=== PATIENT | female | born 1995 | race American Indian/Alaskan Native ===

== ENCOUNTER 2019-12-03 00:01 | Emergency (ER) | payer SELFPAY ==
[2019-12-03 00:22] VITALS: BP 101/67
[2019-12-03 03:20] LABS: Basophils % (Auto) 0.3 % (0.0-1.8); Eosinophils % (Auto) 0.4 % (0.0-4.3); Hematocrit 32.6 % (30.3-42.9); Hemoglobin 10.9 gm/dl (10.1-14.3); Lymphocytes # (Auto) 1.9 K/mm3 (1.2-5.4); Lymphocytes % (Auto) 14.4 % (13.4-35.0); Mean Corpuscular HGB Conc 33 % (30-34); Mean Corpuscular Volume 94 fl (79-97); Monocytes # (Auto) 1.1 K/mm3 (0.0-0.8); Monocytes % (Auto) 8.5 % (0.0-7.3); Platelet Count 322 K/mm3 (140-440); Red Blood Count 3.46 M/mm3 (3.65-5.03); Red Cell Distribution Width 12.8 % (13.2-15.2)
[2019-12-03 03:37] LABS: Alanine Aminotransferase 9 units/L (7-56); Albumin 3.7 g/dL (3.9-5); BUN/Creatinine Ratio 6; Blood Urea Nitrogen 5 mg/dL (7-17); Calcium 9.1 mg/dL (8.4-10.2); Hemolysis Index 1
--- NOTE | 2019-12-03 03:48 | Ultrasound Report ---
ULTRASOUND PELVIS INDICATION: pelvic pain. TECHNIQUE: Transabdominal. Duplex Color Doppler used: Yes. COMPARISON: None available FINDINGS: Uterus: Present. Size: 5.7 x 2.9 x 4.4 cm. Endometrial complex: Normal measuring 0.6 cm. Mass lesions: None. Additional findings: None. Right Ovary: Size: 4.0 x 2.6 x 2.7 cm Blood flow: Normal. Cyst or mass: None. Left Ovary: Size: 3.2 x 2.3 x 2.6 cm Blood flow: Normal. Cyst or mass: None. Urinary Bladder: Normal. Free Fluid: None. Additional Findings: None. IMPRESSION: 1. No acute sonographic abnormality of the pelvis. Signer Name: Zeke Lazo MD Signed: 12/03/2019 3:44 AM Workstation Name: [id number]
[2019-12-03 03:57] LABS: Bacteria,Urine 1+ /HPF (Negative); Bilirubin,Urine NEG (Negative); Blood,Urine NEG (Negative); Color,Urine Yellow (Yellow); Mucus,Urine FEW /HPF; Protein,Urine <15 mg/dL mg/dL (Negative)
--- NOTE | 2019-12-03 04:43 | Emergency Department Report ---
ED Female HPI - General Chief complaint: Abdominal Pain Stated complaint: LOWER ABD PAIN Source: patient Mode of arrival: Ambulatory Limitations: No Limitations - History of Present Illness Initial comments: Patient is a nulliparous 24-year-old -[place] female with no past medical history presents to the ED with complaint of acute onset persistent intermittent severe suprapubic pain for the last 1 week, worse in the last 2 days. Patient denies dizziness, fever, chills, nausea, vomiting, chest pain, shortness of breath, dysuria, urinary frequency and urgency, vaginal discharge, dyspareunia, vaginal bleeding or low back pain. Patient states that she has been taking [id number] medication with no relief. MD Complaint: pelvic pain -: Sudden, week(s) (1) Location: suprapubic Radiation: non-radiating Severity: severe Severity scale (0 -10): 7 Quality: cramping, sharp Consistency: intermittent Improves with: none Worsens with: none Are you Now?: No Last Menstrual Period: 11/27/19 EDC: 09/02/20 Associated Symptoms: denies other symptoms, abdominal pain, loss of appetite, hematuria. denies: vaginal discharge, vaginal bleeding, nausea/vomiting, fever/chills, headaches, dysuria, rash, seizure, shortness of breath, syncope, weakness, other - Related Data Sexually active: Yes : 0 Para: 0 A: 0 Previous Rx's Medication Instructions Recorded Last Taken Type Ibuprofen [Motrin] 600 mg PO Q8H PRN #24 tablet 12/03/19 Unknown Rx Ondansetron [Zofran Odt] 4 mg PO Q6HR PRN #12 tab.rapdis 12/03/19 Unknown Rx cephALEXin [Keflex] 500 mg PO Q8HR #30 cap 12/03/19 Unknown Rx ED Review of Systems ROS: Stated complaint: LOWER ABD PAIN Other details as noted in HPI Constitutional: denies: chills, fever Eyes: denies: eye pain, eye discharge, vision change ENT: denies: ear pain, throat pain Respiratory: denies: cough, shortness of breath, wheezing Cardiovascular: denies: chest pain, palpitations Endocrine: no symptoms reported Gastrointestinal: abdominal pain (Diffuse lower abdominal pain). denies: nausea, diarrhea Genitourinary: denies: urgency, dysuria, frequency, hematuria, discharge, dyspareunia Musculoskeletal: denies: back pain, joint swelling, arthralgia Skin: denies: rash, lesions Neurological: denies: headache, weakness, paresthesias Psychiatric: denies: anxiety, depression Hematological/Lymphatic: denies: easy bleeding, easy bruising ED Past Medical Hx - Past Medical History Previous Medical History?: No - Surgical History Past Surgical History?: No - Social History Smoking Status: Never Smoker Substance Use Type: None - Medications Home Medications: Home Medications Medication Instructions Recorded Confirmed Last Taken Type Ibuprofen [Motrin] 600 mg PO Q8H PRN #24 tablet 12/03/19 Unknown Rx Ondansetron [Zofran Odt] 4 mg PO Q6HR PRN #12 tab.rapdis 12/03/19 Unknown Rx cephALEXin [Keflex] 500 mg PO Q8HR #30 cap 12/03/19 Unknown Rx ED Physical Exam - General Limitations: No Limitations General appearance: alert, in no apparent distress - Head Head exam: Present: atraumatic, normocephalic, normal inspection - Eye Eye exam: Present: normal appearance, PERRL, EOMI Pupils: Present: normal accommodation - ENT ENT exam: Present: normal exam, normal orophraynx, mucous membranes moist, TM's normal bilaterally, normal external ear exam - Neck Neck exam: Present: normal inspection, full ROM - Respiratory Respiratory exam: Present: normal lung sounds bilaterally. Absent: respiratory distress, wheezes, rhonchi, chest wall tenderness, accessory muscle use, decreased breath sounds - Cardiovascular Cardiovascular Exam: Present: normal rhythm, tachycardia, normal heart sounds. Absent: systolic murmur, diastolic murmur, rubs, gallop - GI/Abdominal GI/Abdominal exam: Present: soft, tenderness (Palpable mild suprapubic tenderne ss), normal bowel sounds. Absent: guarding, rebound, hyperactive bowel sounds - Bi-manual exam: Present: other (Pelvic exam deferred, patient declined) - Extremities Exam Extremities exam: Present: normal inspection, full ROM, normal capillary refill - Back Exam Back exam: Present: normal inspection, full ROM. Absent: tenderness, CVA tenderness (R), CVA tenderness (L), muscle spasm, paraspinal tenderness, vertebral tenderness - Neurological Exam Neurological exam: Present: alert, oriented X3, CN II-XII intact, normal gait, reflexes normal - Psychiatric Psychiatric exam: Present: normal affect, normal mood - Skin Skin exam: Present: warm, dry, intact, normal color. Absent: rash ED Course Vital Signs 12/03/19 00:05 Temperature 100.2 F H Pulse Rate 112 H Respiratory 12 Rate Blood Pressure 101/67 O2 Sat by Pulse 98 Oximetry ED Medical Decision Making - Lab Data Result diagrams: 12/03/19 02:43 12/03/19 02:43 - Radiology Data Radiology results: report reviewed, image reviewed Findings [facility] [address] [place] [address] Ultrasound Report Signed Patient: DELMY WEBSTER MR#: [id number] : 1995 Acct:[id number] Age/Sex: 24 / F ADM Date: 12/03/19 Loc: ED Attending Dr: Ordering Physician: MATIAS PEDRO Date of Service: 12/03/19 Procedure(s): US pelvic complete Accession Number(s): [id number] cc: MATIAS PEDRO ULTRASOUND PELVIS INDICATION: pelvic pain. TECHNIQUE: Transabdominal. Duplex Color Doppler used: Yes. COMPARISON: None available FINDINGS: Uterus: Present. Size: 5.7 x 2.9 x 4.4 cm. Endometrial complex: Normal measuring 0.6 cm. Mass lesions: None. Additional findings: None. Right Ovary: Size: 4.0 x 2.6 x 2.7 cm Blood flow: Normal. Cyst or mass: None. Left Ovary: Size: 3.2 x 2.3 x 2.6 cm Blood flow: Normal. Cyst or mass: None. Urinary Bladder: Normal. Free Fluid: None. Additional Findings: None. IMPRESSION: 1. No acute sonographic abnormality of the pelvis. Signer Name: Zeke Lazo MD Signed: 12/03/2019 3:44 AM Workstation Name: [id number] Transcribed By: [place] Dictated By: Zeke Lazo MD Electronically Authenticated By: Zeke Lazo MD Signed Date/Time: 12/03/19 0344 DD/ 0333 TD/TT: - Medical Decision Making This is a 24-year-old nulliparous female who presented to the ED with complaint of acute onset persistent pelvic pain for the last 1 week intermittently. In the ED, patient is alert and oriented x3 and is not in distress but tachycardic and slightly febrile. Lab test results were reviewed and showed acute leukocytosis of 12,900 and significant urinary tract infection in urinalysis. The rest of the lab test results are nonactionable. Pelvic ultrasound shows no acute sonographic abnormality of the pelvis. Patient was treated for pain in the ED and also treated with antibiotics for UTI. Patient symptoms are likely due to acute urinary tract infection although other differential diagnoses were also considered such as ectopic , ovarian cysts, PID, dysmenorrhea or constipation. On reevaluation, patient's pain is well controlled with medications, tachycardia resolved as well as low-grade fever. Patient was discharged home on medications and advised to follow-up with her [facility] physician or primary care physician in 5 to 7 days for reevaluation or return to the ED immediately if symptoms get worse. - Differential Diagnosis UTI; Ectopic ; Ovarian cysts; Dysmenorrhea; PID Critical care attestation.: If time is entered above; I have spent that time in minutes in the direct care of this critically ill patient, excluding procedure time. ED Disposition Clinical Impression: Acute pelvic pain, female, Acute urinary tract infection, Fever and chills Disposition: - TO HOME OR SELFCARE Is pt being admited?: No Does the pt Need Aspirin: No Condition: Stable Instructions: Urinary Tract Infection in Women (ED), Fever in Adults (ED), Abdominal Pain (ED) Additional Instructions: Take medications with food, drink plenty of fluids and follow-up with your [place] care physician in 7 to 10 days for reevaluation. Return to the ED immediately if symptoms get worse. Prescriptions: cephALEXin [Keflex] 500 mg PO Q8HR #30 cap Ibuprofen [Motrin] 600 mg PO Q8H PRN #24 tablet PRN Reason: Pain Ondansetron [Zofran Odt] 4 mg PO Q6HR PRN #12 tab.rapdis PRN Reason: Nausea Referrals: JOSE CARTER MD [Staff Physician] - 7-10 days Time of Disposition: 05:01 Print Language: LITHUANIAN
[2019-12-03] MEDS: KETOROLAC 30 MG/1 ML INJ IV ONE (05:29)
[2019-12-03] MEDS: cephALEXin 500 MG CAP PO ONE (05:30)
[2019-12-03] MEDS: ACETAMINOPHEN 325 MG TAB PO ONE (05:30)
== END 2019-12-03 05:47 | disposition home or self-care (01) ==
LOC: ED 00:01
DX: N39.0 Urinary tract infection, site not specified (principal); Z79.1 Long term (current) use of non-steroidal anti-inflammatories (NSAID); Z79.899 Other long term (current) drug therapy
CPT/HCPCS: 36415; 76856; 80053; 81001; 84703; 85025; 87086; 99282; J1885